=== PATIENT | male | born 1980 | race Caucasian/White ===

== ENCOUNTER 2023-06-03 10:26 | Outpatient (CLI) | payer MEDICAID, SELFPAY | END 2023-06-03 10:27 | disposition home or self-care (01) | LOC: AMB 06-12 10:23 | PROVIDERS: Visit Provider Emergency Medicine | DX: F12.10 Cannabis abuse, uncomplicated (principal); R53.83 Other fatigue | CPT/HCPCS: A0425; A0427 ==

== ENCOUNTER 2023-06-03 10:49 | Emergency (ER) | payer MEDICAID, SELFPAY ==
[2023-06-03 10:59] VITALS: BP 184/102; PULSE 103; RESP 18; TEMP 37.2; O2SAT 100; BMI 34.3
[2023-06-03] MEDS: ONDANSETRON ODT 4 MG TAB PO (11:05)
[2023-06-03] MEDS: HALOPERIDOL 5 MG/ML INJ IM (11:17)
--- NOTE | 2023-06-03 11:18 | ED.GENADULT ---
HPI - General Adult General Chief complaint: Unspecified Complaint, Adult Stated complaint: fatigue Time Seen by Provider: 06/03/23 10:52 History of Present Illness HPI narrative: This 43-year-old male comes in because of feeling jittery after taking 2 doses of gummy bear CBD. He states that he has taken the same dose before without any such symptoms. I asked him how long he has been taking this and he states just for a couple days. He denies using any other street drugs or alcohol. After arrival here he did have some episodes of nausea with dry heaves. He arrives with normal vital signs except his heart rate is borderline tachycardic. Related Data Home Medications Medication Instructions Recorded Confirmed lisinopril .ROUTE 06/03/23 Allergies Allergy/AdvReac Type Severity Reaction Status Date / Time No Known Drug Allergies Allergy Verified 06/03/23 11:04 Review of Systems Status of ROS: Reports: 10 or more systems reviewed and unremarkable except as noted in History and below Narrative: Constitutional: No fevers, no weight gain or loss. Eyes: No discharge. No vision changes. HENT: No congestion, no sore throat, no ear pain. Cardiovascular: No chest pain, no palpitations. Respiratory: No shortness of breath, no wheezes, no cough. Gastrointestinal: No abdominal pain, no diarrhea. Nausea with dry heaves. Genitourinary: No dysuria, no hematuria. Musculoskeletal: Normal range of motion. Skin: No rashes, no pruritis. Neurological: No dizziness, weakness, sensory change, speech change. Endo/Heme/Allergies: No bruising or bleeding. No polydipsia. Pysch: no suicidality, no anxiety, no insomnia. All other systems reviewed and are negative. PFSH PFS Social History Smoking Status: Unknown if ever smoked Non-prescribed substance use: marijuana (any form) Exam Narrative: Exam Narrative: Constitutional: Well-developed, well-nourished, no acute distress. HEENT: Normocephalic, atraumatic. Neck: Normal range of motion. Nontender. Supple. Heart: Regular. No murmurs. Normal rate. Intact distal pulses. Lungs: Clear to auscultation. No chest discomfort. No wheezes, rhonchi, or rales. Abdomen: Normal bowel sounds. Nontender. No rebound tenderness. Genitalia: Deferred. Back: No midline tenderness. Normal range of motion. Extremities: Normal range of motion. No injury. Skin: Intact. No rash. Warm. No erythema or pallor. Neurologic: No altered sensation. No weakness. Alert and oriented. Psychiatric: No suicidality. No anxiety or depression. No insomnia. Nursing notes and vitals signs are reviewed. Const: Vital Signs, click to edit/add: Vital Signs - 24 hr 06/03/23 10:59 Temperature 98.9 F Pulse Rate [Pulse Oximeter] 103 H Respiratory Rate 18 Blood Pressure [Le ft Upper Arm] 184/102 H Pulse Oximetry 100 Oxygen Delivery Me thod Room Air Course Vital Signs Vital signs: Initial Vital Signs Temperature 98.9 F 06/03/23 10:59 Temperature Source Temporal Artery Scan 06/03/23 10:59 Pulse Rate 103 H 06/03/23 10:59 Respiratory Rate 18 06/03/23 10:59 Blood Pressure 184/102 H 06/03/23 10:59 Blood Pressure Mean 129 H 06/03/23 10:59 Blood Pressure Position Sitting 06/03/23 10:59 Pulse Oximetry 100 06/03/23 10:59 Oxygen Delivery Method Room Air 06/03/23 10:59 Vital Signs Temperature 98.9 F 06/03/23 10:59 Pulse Rate 103 H 06/03/23 10:59 Respiratory Rate 18 06/03/23 10:59 Blood Pressure 184/102 H 06/03/23 10:59 Pulse Oximetry 100 06/03/23 10:59 Oxygen Delivery Method Room Air 06/03/23 10:59 Temperature 98.9 F 06/03/23 10:59 Pulse Rate 103 H 06/03/23 10:59 Respiratory Rate 18 06/03/23 10:59 Blood Pressure 184/102 H 06/03/23 10:59 Pulse Oximetry 100 06/03/23 10:59 Oxygen Delivery Method Room Air 06/03/23 10:59 Medications Administered Medications: Discontinued Medications Generic Name Dose Route Start Last Admin Trade Name Freq PRN Reason Stop Dose Admin Haloperidol Lactate 5 mg 06/03/23 11:10 06/03/23 11:17 Haloperidol 5 Mg/Ml Inj IM 06/03/23 11:11 5 mg ONCE ONE Administration Ondansetron HCl 4 mg 06/03/23 11:01 06/03/23 11:05 Ondansetron Odt 4 Mg Tab PO 06/03/23 11:02 4 mg ONCE ONE Administration Medical Decision Making MDM Narrative Medical decision making narrative: This patient comes in by ambulance after feeling jittery secondary to taking CBD gummy bears. Ambulance personnel attempted to place an IV but were unsuccessful. The patient arrives with normal vital signs except borderline tachycardia. He states that he is otherwise in good health. He does have some intermittent episodes of spasms and then began to have nausea with dry heaves. The patient did receive an oral dose of Zofran 4 mg. He has recently started taking these gummy bears and took similar doses the last couple days. It seems likely that this medicine is building up in his system and causing adverse effects. He received an intramuscular injection of Haldol which brought relief to his nausea and vomiting symptoms. Later he received an oral dose of Ativan 0.5 mg as he is still feeling a little bit twitchy. Family members are present in the room and feel okay with taking him home. I advised him to discontinue use of cannabis for now and if he restarts he should be careful with dosing. Discharge Plan Discharge Clinical Impression: Accidental cannabis overdose Patient Disposition: Home w/ Parent or Adult Condition: Improved Additional Instructions: Avoid CBD. Increase activity as tolerated. Follow up with MD or return if worsening symptoms happen. Prescriptions: No Action lisinopril .ROUTE Follow Up/Referrals: Provider,Not a Local [Primary Care Provider] - Stand Alone Forms: [employer] Info Instructions
[2023-06-03] MEDS: LORazepam 0.5 MG TABLET PO (12:29)
[2023-06-03 12:30] VITALS: BP 147/84; PULSE 88; RESP 12; O2SAT 95
== END 2023-06-03 12:37 | disposition home or self-care (01) ==
PROVIDERS: Emergency Provider Emergency Medicine Emergency Medical Services
DX: T40.711A Poisoning by cannabis, accidental (unintentional), initial encounter (principal)
CPT/HCPCS: 96372; 99284; A9270; J1630